=== PATIENT | female | born 1985 | race Caucasian/White ===

== ENCOUNTER 2017-08-06 10:30 | Emergency (ER) | payer BC, OTHER ==
--- NOTE | 2017-08-06 10:44 | ER Document Report ---
ED Eye Complaint - General Chief Complaint: Eye Problem Stated Complaint: SWOLLEN EYE LID Time Seen by Provider: 08/06/17 10:37 Notes: Patient is a 31 year old female who presents to the ED complaining of left eye lid enlargement. She states she had a folliculitis lesion on her left scalp drained yesterday. Woke up today with her eye lid swollen but nontender, no redness, purulent drainage, vision changes, or headache. Denies any trauma. Denies any new medications. TRAVEL OUTSIDE OF THE [place] IN LAST 30 DAYS: No - Related Data Allergies/Adverse Reactions: No Known Allergies Allergy (Verified 08/06/17 10:33) Home Medications: Current Home Medications Ethinyl Estradiol/Drospirenone [Loryna 3 mg-0.02 mg Tablet] 1 tab PO DAILY 08/06 [History] Levothyroxine Sodium 1 tab PO DAILY 08/06/17 [History] Sertraline HCl [Sertraline HCl] 1 tab PO DAILY 08/06/17 [History] Thyroid,Pork [Nature-Throid] 1 tab PO DAILY 08/06/17 [History] Past Medical History - Social History Smoking Status: Never Smoker Family History: Reviewed & Not Pertinent - Past Medical History Cardiac Medical History: Reports: Other - Patient states that she her heart rate normally runs "high" Review of Systems - Review of Systems Constitutional: No symptoms reported EENT: See HPI -: Yes All other systems reviewed and negative Physical Exam - Vital signs Vitals: Temp Pulse Resp BP Pulse Ox 98.4 F 122 H 20 139/93 H 97 08/06/17 10:33 08/06/17 10:33 08/06/17 10:33 08/06/17 10:33 08/06/17 10:33 - General General appearance: Appears well, Alert In distress: None - HEENT Head: Normocephalic, Other - folliculitis on left frontal scalp claire 3cm in diameter, tendner to palpation with active drainage, no active bleeding Eyes: Other - periorbital fluctuance without edema, induration, tenderness Conjunctiva: Normal. No: Icteric, Injected, Purulent discharge Extraocular movements intact: Yes Eyelashes: Normal Pupils: PERRL Corrective lenses worn: Yes - glasses Fundascopic: Normal Nerve palsy: No Sinus: Normal. No: Tenderness - Neurological Neuro grossly intact: Yes Cognition: Normal Orientation: AAOx4 [place] Coma Scale Eye Opening: Spontaneous [place] Coma Scale Verbal: Oriented [place] Coma Scale Motor: Obeys Commands [place] Coma Scale Total: 15 - Skin Skin Temperature: Warm Skin Moisture: Dry Skin Color: Normal Skin Turgor: Elastic Course - Re-evaluation Re-evalutation: 08/06/17 10:53 Patient is a 31 year old female who presents with periorbital edema. Presentation is consitent with lymph drainage likely related to her folliculitis I&D yesterday. It is not consistent with infection given nontender , no evidence of erythema, no induration. No recent trauma, without vision changes, focal neurological deficits, with EOM intact. 08/06/17 11:15 Moderate improvement after ice application for approximately 20 minutes. Patient remains pain-free. Stable for discharge home given strict return precautions. Patient agrees with plan - Vital Signs Vital signs: Temp Pulse Resp BP Pulse Ox 97.8 F 118 H 16 138/95 H 97 08/06/17 11:16 08/06/17 11:16 08/06/17 11:16 08/06/17 11:16 08/06/17 11:16 Discharge - Discharge Clinical Impression: Periorbital edema Condition: Good Disposition: HOME, SELF-CARE Additional Instructions: Your presentation today is consistent with edema which is swelling from lymph fluid within your tissues. Your edema today is likely related to your procedure yesterday. This can be managed with cold compresses as tolerated. Otherwise please follow up with your primary care provider on Thursday Referrals: CHARO SANTAMARIA, [Primary Care Provider] - Follow up as needed
[2017-08-06 11:19] VITALS: BP 138/95
== END 2017-08-06 11:20 | disposition home or self-care (01) ==
LOC: ER 10:30
DX: R60.9 Edema, unspecified (principal); L73.9 Follicular disorder, unspecified
CPT/HCPCS: 99283

== ENCOUNTER 2019-08-04 22:23 | Emergency (ER) | payer OTHER ==
--- NOTE | 2019-08-04 22:59 | ER Document Report ---
ED General - General Chief Complaint: Psych Problem Stated Complaint: PANIC ATTACK Time Seen by Provider: 08/04/19 22:43 Notes: Patient is a 33-year-old female that comes emergency department for chief complaint of a panic attack. She comes by EMS, reportedly she was hyperventilating with an initial respiratory rate of 42 although her heart rate was only 99. EMS gave her 2 mg of Ativan IV, she states she feels much better now. She states that she was at her house with her friends and neighbors came over and "did an intervention". She states that they did this because they feel like she needs to eat more and she is eating poorly. She states she was diagnosed with anorexia and she was admitted to the hospital once before for this, she states she has done laxative and purging in the past but not recently, she admits that she does still eat very poorly. She states she is seen in [facility] on follow-up, she has been started on Prozac and she is on medications for hypothyroidism. She states that she has never had a panic attack like this before, she states that when she started hyperventilating her hand started cramping her friend called EMS. She denies SI or HI, she states she is still good friends with her neighbors and friends who did this, she states she is hoping she can just go home. She does states she has a follow-up appointment because she is being monitored by [facility]. She admits that she was working and barely ate or drink anything today. TRAVEL OUTSIDE OF THE [place] IN LAST 30 DAYS: No - Related Data Allergies/Adverse Reactions: No Known Allergies Allergy (Verified 08/06/17 10:33) Past Medical History - General Information source: Patient, Emergency Med Personnel - Social History Smoking Status: Never Smoker Frequency of alcohol use: None Drug Abuse: None Lives with: Alone Family History: Reviewed & Not Pertinent Patient has suicidal ideation: No Patient has homicidal ideation: No Endocrine Medical History: Reports: Hx Hypothyroidism Renal/ Medical History: Denies: Hx Peritoneal Dialysis Psychiatric Medical History: Reports: Hx Anxiety, Hx Depression Surgical Hx: Negative - Immunizations Immunizations up to date: Yes Hx Diphtheria, Pertussis, Tetanus Vaccination: Yes Review of Systems - Review of Systems Constitutional: No symptoms reported EENT: No symptoms reported Cardiovascular: No symptoms reported Respiratory: No symptoms reported Gastrointestinal: No symptoms reported Genitourinary: No symptoms reported Female Genitourinary: No symptoms reported Musculoskeletal: See HPI Skin: No symptoms reported Hematologic/Lymphatic: No symptoms reported Neurological/Psychological: See HPI Physical Exam - Vital signs Vitals: Temp Pulse Resp BP Pulse Ox 98.1 F 132 H 18 133/83 H 100 08/04/19 22:28 08/04/19 22:28 08/04/19 22:28 08/04/19 22:28 08/04/19 22:28 - Notes Notes: GENERAL: Alert, interacts well. No acute distress. HEAD: Normocephalic, atraumatic. EYES: Pupils equal, round, and reactive to light. Extraocular movements intact. ENT: Oral mucosa dry, tongue midline. Oropharynx unremarkable. Airway patent. NECK: Full range of motion. Supple. Trachea midline. LUNGS: Clear to auscultation bilaterally, no wheezes, rales, or rhonchi. No respiratory distress. HEART: Tachycardia, normal rhythm, no murmur ABDOMEN: Soft, non-tender. Non-distended. Bowel sounds present in all 4 quadrants. GENITOURINARY: Deferred EXTREMITIES: Moves all 4 extremities spontaneously. No edema, normal radial and dorsalis pedis pulses bilaterally. No cyanosis. BACK: no cervical, thoracic, lumbar midline tenderness. No saddle anesthesia, normal distal neurovascular exam. Moves all extremities in full range of motion. NEUROLOGICAL: Alert and oriented x3. Normal speech. Cranial nerves II through XII grossly intact. PSYCH: Normal affect, normal mood. Cooperative and attentive SKIN: Warm, dry, normal turgor. No rashes or lesions noted. Course - Re-evaluation Re-evalutation: Patient is cooperative, alert, she is somewhat tachycardic on my exam, however she states she is much improved and she is not hyperventilating. Patient denies SI or HI, states that she feels that she had a panic attack, her reported symptoms do sound like a panic attack. Patient is stating that she would prefer now that she feels improved to go home and follow-up with her primary provider for additional management of her eating disorder and panic attack. She denies chest pain, dizziness, lightheadedness, shortness of breath, or any other complaints. Because of her tachycardia and reported lack of eating and drinking today she was given IV fluids, glucose was checked, after IV fluids heart rate normalized and glucose was unremarkable. Patient called a friend who states they will be willing to pick her up and bring her home. I do not have criteria to perform IVC, patient states that she does have good follow-up and would prefer to follow-up with them instead of staying did speak to mental health here, patient states she will return for any concerning or worsening symptoms. Stable at time of discharge. - Vital Signs Vital signs: Temp Pulse Resp BP Pulse Ox 98.1 F 106 H 20 130/79 H 98 08/04/19 22:28 08/05/19 00:11 08/05/19 00:11 08/05/19 00:11 08/05/19 00:11 Discharge - Discharge Clinical Impression: Panic attack Condition: Stable Disposition: HOME, SELF-CARE Instructions: Anxiety ([facility]) Additional Instructions: Your symptoms and resolution with treatment are most consistent with a panic attack. Please follow-up close with your primary care provider for additional evaluation and management. Return to the emergency department for any concerning or worsening symptoms including return difficulty breathing, passing out, fever, or any other concerning or worsening symptoms. Forms: Return to Work
[2019-08-04] MEDS ORDERED: RINGERS SOLUTION,LACTATED 1,000 ML IV ONE (23:03)
[2019-08-05 00:30] VITALS: BP 130/79
== END 2019-08-05 00:55 | disposition home or self-care (01) ==
LOC: ER 22:23
DX: F41.0 Panic disorder [episodic paroxysmal anxiety] (principal); E03.9 Hypothyroidism, unspecified; Z79.899 Other long term (current) drug therapy
CPT/HCPCS: 99283; 96360; 82962; J7120